=== PATIENT | female | born 1945 ===

== ENCOUNTER 2019-11-15 14:19 | Outpatient (RCR) | payer MEDICARE, OTHER, SELFPAY | END 2019-11-16 23:59 | disposition home or self-care (01) | LOC: MPT 14:19 | PROVIDERS: PCP Nurse Practitioner; Visit Provider Nurse Practitioner | DX: M54.5 Low back pain (principal) | CPT/HCPCS: 97110; 97140; 97161 ==

== ENCOUNTER 2019-11-17 06:00 | Outpatient (RCR) | payer MEDICARE, OTHER, SELFPAY | END 2019-12-17 23:59 | disposition home or self-care (01) | LOC: MPT 06:00 | PROVIDERS: PCP Nurse Practitioner; Visit Provider Nurse Practitioner | DX: G89.29 Other chronic pain (principal); M54.5 Low back pain | CPT/HCPCS: 97110; 97140; 97530 ==

== ENCOUNTER 2019-12-18 06:00 | Outpatient (RCR) | payer MEDICARE, OTHER, SELFPAY | END 2020-01-16 23:59 | disposition home or self-care (01) | LOC: MPT 06:00 | PROVIDERS: PCP Nurse Practitioner; Visit Provider Nurse Practitioner | DX: G89.29 Other chronic pain (principal); M54.5 Low back pain | CPT/HCPCS: 97110; 97140; 97530 ==

== ENCOUNTER 2020-01-17 06:00 | Outpatient (RCR) | payer MEDICARE, OTHER, SELFPAY | END 2020-02-16 23:59 | disposition home or self-care (01) | LOC: MPT 06:00 | PROVIDERS: PCP Nurse Practitioner; Visit Provider Nurse Practitioner | DX: G89.29 Other chronic pain (principal); M45.4 Ankylosing spondylitis of thoracic region | CPT/HCPCS: 97110; 97140; 97530 ==

== ENCOUNTER 2020-06-26 06:00 | Outpatient (RCR) | payer MEDICARE, OTHER, SELFPAY | END 2020-07-16 23:59 | disposition home or self-care (01) | LOC: MPT 06:00 | PROVIDERS: PCP Nurse Practitioner; Referring Provider Nurse Practitioner; Visit Provider Nurse Practitioner | DX: M54.2 Cervicalgia (principal); R51.9 Headache, unspecified; S06.0X9D Concussion with loss of consciousness of unspecified duration, subsequent encounter; X58.XXXD Exposure to other specified factors, subsequent encounter | CPT/HCPCS: 97110; 97112; 97140; 97161; 97164; G0283 ==

== ENCOUNTER 2020-07-17 06:00 | Outpatient (RCR) | payer MEDICARE, OTHER, SELFPAY | END 2020-08-15 23:59 | disposition home or self-care (01) | LOC: MPT 06:00 | PROVIDERS: PCP Nurse Practitioner; Referring Provider Nurse Practitioner; Visit Provider Nurse Practitioner | DX: M54.2 Cervicalgia (principal); R51.9 Headache, unspecified; S06.0X9A Concussion with loss of consciousness of unspecified duration, initial encounter; X58.XXXA Exposure to other specified factors, initial encounter | CPT/HCPCS: 97110; 97140 ==

== ENCOUNTER 2025-02-15 08:48 | Outpatient (RCR) | payer MEDICARE, OTHER, SELFPAY | END 2025-02-15 23:59 | disposition home or self-care (01) | LOC: MPT 08:48 | PROVIDERS: Visit Provider Nurse Practitioner Family | DX: M70.62 Trochanteric bursitis, left hip (principal) | CPT/HCPCS: 97110; 97140; 97162 ==